=== PATIENT | female | born 1960 | race Caucasian/White ===

== ENCOUNTER 2020-06-26 08:39 | Day surgery (SDC) | payer OTHER ==
[2020-06-25 10:42] VITALS: BMI 20.1
[~2020-06-26 08:39] MED LIST: LACTATED RINGERS 1,000 ML IV SCH; LIDOCAINE 1% (10MG/ML) FOR IV START INTRADERMA PRN
[2020-06-26 09:16] VITALS: TEMP 97
[2020-06-26] MEDS ORDERED: LIDOCAINE 1% INJ 10MG/ML (20 ML MDV) ONE (09:27)
[2020-06-26] MEDS ORDERED: PROPOFOL 10 MG/ML 20 ML VIAL IV ONE (09:27)
--- NOTE | 2020-06-26 09:49 | P.PCN ---
Date of Procedure: 06/26/20 Procedure(s) Performed: BRIEF HISTORY: Patient is a 60-year-old pleasant white female scheduled for an elective colonoscopy as a part of evaluation of chronic diarrhea for the last 6 months duration. She denies any rectal bleeding. PROCEDURE PERFORMED: Colonoscopy with random biopsy. PREOPERATIVE DIAGNOSIS: Chronic diarrhea of 6 months duration. IV sedation per Anesthesia. PROCEDURE: After informed consent was obtained, the patient, was brought into the endoscopy unit. IV sedation was administered by Anesthesia under continuous monitoring. Digital rectal examination was normal. Initially the Olympus CF-160 flexible video colonoscope was then inserted in the rectum, gradually advanced into the cecum without any difficulty. Careful examination was performed as the scope was gradually being withdrawn. Ileocecal valve and the appendiceal orifice were visualized and appeared normal. Prep was excellent. Mucosa of the cecum, ascending colon, transverse colon, descending colon, sigmoid colon, and rectum appeared normal. scattered left-sided diverticulosis. Random biopsies were done from ascending and descending colon to rule out microscopic/collagenous colitis. Retroflexion was performed in the rectum and no lesions were seen. The patient tolerated the procedure well. IMPRESSION: Normal-appearing colon from rectum to cecum with no evidence of colitis or colorectal neoplasia. Scattered left sided diverticulosis . RECOMMENDATIONS: Findings of this examination were discussed with the patient as well as a family. She was advised to follow with the biopsy results. In the meantime she can use [id number] Imodium as needed for the chronic diarrhea.
[2020-06-26 09:57] VITALS: RESP 16
[2020-06-26 10:12] VITALS: BP 136/42; PULSE 77
== END 2020-06-26 10:53 | disposition home or self-care (01) ==
LOC: ORWHC2ENDO 08:39
PROVIDERS: ATTEND Internal Medicine Gastroenterology
DX: K57.30 Diverticulosis of large intestine without perforation or abscess without bleeding (principal); K52.9 Noninfective gastroenteritis and colitis, unspecified; M79.7 Fibromyalgia; K21.9 Gastro-esophageal reflux disease without esophagitis; Z88.2 Allergy status to sulfonamides; Z79.899 Other long term (current) drug therapy; Z79.891 Long term (current) use of opiate analgesic
CPT/HCPCS: 88305; 45380; J2001; J2704

== ENCOUNTER 2021-02-05 12:58 | Observation (INO) | payer OTHER ==
[2021-02-05] MEDS ORDERED: ASPIRIN 81 MG PO STA (13:30)
[2021-02-05] MEDS ORDERED: NITROGLYCERIN OINT 1 INCH/GM PACKET TOPICAL STA (13:30)
--- NOTE | 2021-02-05 13:34 | ED ---
General Adult HPI - General Chief complaint: Chest Pain Stated complaint: Chest Pain Time Seen by Provider: 02/05/21 13:04 Source: patient, RN notes reviewed Mode of arrival: wheelchair Limitations: no limitations - History of Present Illness Initial comments: Patient is a pleasant 60-year-old female presenting to the emergency Department with complaints of chest discomfort. Onset of symptoms was a week ago. Discomfort has been daily, generally mild however has had some severe episodes including prior to arrival. Discomfort mostly feels a pressure however occasionally sharp. Patient did have some tingling of her right arm. No associated dyspnea. No radiation. - Related Data Home Medications Medication Instructions Recorded Confirmed Amitriptyline HCl [Elavil] 75 mg PO HS 02/29/20 06/25/20 Calcium Carbonate/Vitamin D3 2 each PO DAILY 02/29/20 06/25/20 [Calcium 500-Vit D3 600 Tablet] Cholecalciferol [Vitamin D3 (25 25 mcg PO DAILY 02/29/20 06/25/20 Mcg = 1000 Iu)] Ferrous Sulfate [Feosol] 325 mg PO HS 02/29/20 06/25/20 Gabapentin [Neurontin] 300 mg PO TID 02/29/20 06/25/20 Morphine Sulfate [Ms Contin] 30 mg PO Q8HR PRN 02/29/20 06/25/20 Omeprazole [PriLOSEC] 20 mg PO AC-BRKFST PRN 02/29/20 06/25/20 Potassium Gluconate [Potassium 1 tab PO DAILY 02/29/20 06/25/20 Gluconate ER] Sennosides [Ex-Lax] 15 mg PO DIRECTED PRN 02/29/20 06/25/20 methocarbamoL [Robaxin] 500 mg PO Q8H 02/29/20 06/25/20 polyethylene glycoL 3350 [Miralax] 17 gm PO DAILY 02/29/20 06/25/20 Allergies Allergy/AdvReac Type Severity Reaction Status Date / Time Sulfa (Sulfonamide Allergy Rash/Hives Verified 02/05/21 12:59 Antibiotics) Review of Systems ROS Statement: Those systems with pertinent positive or pertinent negative responses have been documented in the HPI. ROS Other: All systems not noted in ROS Statement are negative. Constitutional: Denies: fever Eyes: Denies: eye pain ENT: Denies: ear pain Respiratory: Denies: cough Cardiovascular: Reports: as per HPI, chest pain Endocrine: Denies: fatigue Gastrointestinal: Denies: vomiting Genitourinary: Denies: dysuria Musculoskeletal: Denies: back pain Skin: Denies: rash Neurological: Denies: weakness Past Medical History Past Medical History: Fibromyalgia, GERD/Reflux Additional Past Medical History / Comment(s): positive covid Mar 2020, Back pain-extra disc. History of Any Multi-Drug Resistant Organisms: None Reported Past Surgical History: Bariatric Surgery, Section, Cholecystectomy, Hysterectomy, Tubal Ligation Additional Past Surgical History / Comment(s): Colonoscopy. Gastric bypass. C- S x3 Past Anesthesia/Blood Transfusion Reactions: Motion Sickness Past Psychological History: No Psychological Hx Reported Smoking Status: Never smoker Past Alcohol Use History: None Reported Past Drug Use History: None Reported - Past Family History Mother Family Medical History: Cancer Additional Family Medical History / Comment(s): ovarian cancer General Exam Limitations: no limitations General appearance: alert, in no apparent distress Head exam: Present: normocephalic Eye exam: Present: normal appearance Neck exam: Present: normal inspection Respiratory exam: Present: normal lung sounds bilaterally, chest wall tenderness (Minimal) Cardiovascular Exam: Present: regular rate, normal rhythm Expanded Peripheral pulses: 2+: Radial (R), Radial (L), Dorsalis Pedis (R), Dorsalis Pedis (L) GI/Abdominal exam: Present: soft. Absent: tenderness Extremities exam: Present: normal inspection. Absent: pedal edema, calf tenderness Neurological exam: Present: alert Psychiatric exam: Present: normal affect, normal mood Skin exam: Present: normal color Course Vital Signs 02/05/21 02/05/21 13:00 13:19 Temperature 98.3 F Pulse Rate 92 Pulse Rate [ 82 Guest Services ] Respiratory 18 16 Rate Blood Pressure 133/78 O2 Sat by Pulse 100 Oximetry EKG Findings - EKG Comments: EKG Findings:: Normal sinus rhythm with a rate of 90. DC 124. QRS 82. QT 360. QTC 440. Normal axis. Normal QRS. No acute ST change. Medical Decision Making - Medical Decision Making Patient reevaluated and resting comfortably in bed. Patient and family updated on results and plan. Patient specifically updated guarding lung nodule. Dr. Bobo has been paged for admission, covering Dr. Bernardo. - Lab Data Result diagrams: 02/05/21 13:45 02/05/21 13:45 Lab Results 02/05/21 02/05/21 02/05/21 Range/Units 13:45 13:45 13:45 WBC 7.1 (3.8-10.6) k/uL RBC 4.37 (3.80-5.40) m/uL Hgb 13.3 (11.4-16.0) gm/dL Hct 41.6 (34.0-46.0) % MCV 95.0 (80.0-100.0) fL MCH 30.4 (25.0-35.0) pg MCHC 32.0 (31.0-37.0) g/dL RDW 12.8 (11.5-15.5) % Plt Count 358 (150-450) k/uL MPV 7.5 Neutrophils % 71 % Lymphocytes % 21 % Monocytes % 5 % Eosinophils % 1 % Basophils % 0 % Neutrophils # 5.0 (1.3-7.7) k/uL Lymphocytes # 1.5 (1.0-4.8) k/uL Monocytes # 0.4 (0-1.0) k/uL Eosinophils # 0.1 (0-0.7) k/uL Basophils # 0.0 (0-0.2) k/uL PT 9.4 (9.0-12.0) sec INR 0.9 (<1.2) APTT 23.1 (22.0-30.0) sec D-Dimer 0.29 (<0.60) mg/L FEU Sodium 137 (137-145) mmol/L Potassium 4.0 (3.5-5.1) mmol/L Chloride 102 (98-107) mmol/L Carbon Dioxide 27 (22-30) mmol/L Anion Gap 8 mmol/L BUN 15 (7-17) mg/dL Creatinine 0.59 (0.52-1.04) mg/dL Est GFR (CKD-EPI)AfAm >90 (>60 ml/min/1.73 sqM) Est GFR (CKD-EPI)NonAf >90 (>60 ml/min/1.73 sqM) Glucose 112 H (74-99) mg/dL Calcium 10.0 (8.4-10.2) mg/dL Magnesium 1.8 (1.6-2.3) mg/dL Total Bilirubin 0.5 (0.2-1.3) mg/dL AST 36 (14-36) U/L ALT 29 (4-34) U/L Alkaline Phosphatase 98 (38-126) U/L Troponin I (0.000-0.034) ng/mL Total Protein 6.5 (6.3-8.2) g/dL Albumin 3.9 (3.5-5.0) g/dL 02/05/21 Range/Units 13:45 WBC (3.8-10.6) k/uL RBC (3.80-5.40) m/uL Hgb (11.4-16.0) gm/dL Hct (34.0-46.0) % MCV (80.0-100.0) fL MCH (25.0-35.0) pg MCHC (31.0-37.0) g/dL RDW (11.5-15.5) % Plt Count (150-450) k/uL MPV Neutrophils % % Lymphocytes % % Monocytes % % Eosinophils % % Basophils % % Neutrophils # (1.3-7.7) k/uL Lymphocytes # (1.0-4.8) k/uL Monocytes # (0-1.0) k/uL Eosinophils # (0-0.7) k/uL Basophils # (0-0.2) k/uL PT (9.0-12.0) sec INR (<1.2) APTT (22.0-30.0) sec D-Dimer (<0.60) mg/L FEU Sodium (137-145) mmol/L Potassium (3.5-5.1) mmol/L Chloride (98-107) mmol/L Carbon Dioxide (22-30) mmol/L Anion Gap mmol/L BUN (7-17) mg/dL Creatinine (0.52-1.04) mg/dL Est GFR (CKD-EPI)AfAm (>60 ml/min/1.73 sqM) Est GFR (CKD-EPI)NonAf (>60 ml/min/1.73 sqM) Glucose (74-99) mg/dL Calcium (8.4-10.2) mg/dL Magnesium (1.6-2.3) mg/dL Total Bilirubin (0.2-1.3) mg/dL AST (14-36) U/L ALT (4-34) U/L Alkaline Phosphatase (38-126) U/L Troponin I <0.012 (0.000-0.034) ng/mL Total Protein (6.3-8.2) g/dL Albumin (3.5-5.0) g/dL - Radiology Data Radiology results: image reviewed (Chest x-ray shows no acute process. 1.1 cm right midlung nodule.) Disposition Clinical Impression: Chest pain Disposition: ADMITTED IP TO THIS HOSP Is patient prescribed a controlled substance at d/c from ED?: No Referrals: Abdirizak Dawn DO [Primary Care Provider] - 1-2 days Decision Time: 15:04
[2021-02-05 13:53] LABS: Basophils % (A) 0 %; Eosinophils # (A) 0.1 k/uL (0-0.7); Eosinophils % (A) 1 %; HCT 41.6 % (34.0-46.0); HGB 13.3 gm/dL (11.4-16.0); Lymphocytes # (A) 1.5 k/uL (1.0-4.8); Lymphocytes % (A) 21 %; MCH 30.4 pg (25.0-35.0); Mean Platelet Volume 7.5; Monocytes # (A) 0.4 k/uL (0-1.0); Monocytes % (A) 5 %; Neutrophils % (A) 71 %; Platelet Count 358 k/uL (150-450); RBC 4.37 m/uL (3.80-5.40); RDW 12.8 % (11.5-15.5); WBC 7.1 k/uL (3.8-10.6)
--- NOTE | 2021-02-05 14:03 | XR ---
EXAMINATION TYPE: XR chest 2V DATE OF EXAM: 02/05/2021 COMPARISON: NONE TECHNIQUE: PA and lateral views submitted. HISTORY: Chest pain FINDINGS: The lungs are clear and there is no pneumothorax, pleural effusion, or focal pneumonia. There is a nodule seen in the right midlung measuring 1.1 cm. Hyperinflation noted. Degenerative change of the s pine. Surgical clips in the abdomen. Diffuse osteopenia with arthropathy of the shoulders. Heart size is normal. IMPRESSION: 1. No acute process. There is a 1.1 cm nodule in the right midlung recommend CT of the chest to exclu de a suspicious lesion.
[2021-02-05 14:13] LABS: INR 0.9 (<1.2); Partial Thromboplastin Time 23.1 sec (22.0-30.0); Prothrombin Time 9.4 sec (9.0-12.0)
[2021-02-05 14:15] LABS: ALT 29 U/L (4-34); AST 36 U/L (14-36); African American GFR (CKD) >90 (>60 ml/min/1.73 sqM); Albumin 3.9 g/dL (3.5-5.0); Alkaline Phosphatase 98 U/L (38-126); Anion Gap 8 mmol/L; Blood Urea Nitrogen 15 mg/dL (7-17); Carbon Dioxide 27 mmol/L (22-30); Chloride 102 mmol/L (98-107); Glucose 112 mg/dL (74-99); Magnesium 1.8 mg/dL (1.6-2.3); Non-African American GFR(CKD) >90 (>60 ml/min/1.73 sqM); Sodium 137 mmol/L (137-145); Total Bilirubin 0.5 mg/dL (0.2-1.3); Total Protein 6.5 g/dL (6.3-8.2)
[2021-02-05] MEDS ORDERED: NITROGLYCERIN SL TABS 0.4 MG TAB SUBLINGUAL PRN (15:41)
[2021-02-05] MEDS ORDERED: GABAPENTIN 300 MG CAP PO PRN (16:51)
[2021-02-05] MEDS ORDERED: LORazepam 0.5 MG TAB PO PRN (16:52)
[2021-02-05] MEDS ORDERED: LACTULOSE 20 GM/30 ML CUP PO PRN (16:52)
[2021-02-05] MEDS ORDERED: CALCIUM CARBONATE 500 MG CHEWABLE PO PRN (16:52)
[2021-02-05] MEDS ORDERED: MAGNESIUM HYDROXIDE 2,400 MG/10 ML CUP PO PRN (16:52)
[2021-02-05] MEDS ORDERED: ONDANSETRON 4 MG/2 ML VIAL IVP PRN (16:52)
[2021-02-05] MEDS ORDERED: ACETAMINOPHEN TAB 325 MG TAB PO PRN (16:52)
[2021-02-05] MEDS ORDERED: MAG HYDROX/AL HYDROX/SIMETH 30 ML CUP PO PRN (16:52)
[2021-02-05] MEDS ORDERED: NALOXONE 0.4 MG/ML 1 ML VIAL IV PRN (16:52)
[2021-02-05] MEDS ORDERED: MELATONIN 3 MG TABLET PO PRN (16:52)
[2021-02-05] MEDS: ENOXAPARIN 40 MG/0.4 ML SYRINGE SQ SCH (18:36)
[2021-02-05] MEDS: NITROGLYCERIN OINT 1 INCH/GM PACKET TOPICAL SCH (18:39)
[2021-02-05] MEDS: methocarbamoL 500 MG TAB PO SCH (18:45)
[2021-02-05] MEDS ORDERED: AMITRIPTYLINE HCL 25 MG TAB PO SCH (21:00)
[2021-02-05] MEDS: MORPHINE SULFATE ER 30 MG TABLET PO PRN (21:50)
[2021-02-06] MEDS: NITROGLYCERIN OINT 1 INCH/GM PACKET TOPICAL SCH ×3 (00:13→13:00)
[2021-02-06 02:31] VITALS: RESP 18
[2021-02-06] MEDS: methocarbamoL 500 MG TAB PO SCH ×2 (03:47→09:31)
[2021-02-06] MEDS ORDERED: PANTOPRAZOLE 40 MG TABLET PO SCH (07:30)
[2021-02-06] MEDS: FERROUS SULFATE 325 MG TAB PO SCH ×2 (07:42→10:40)
[2021-02-06] MEDS: ENOXAPARIN 40 MG/0.4 ML SYRINGE SQ SCH (07:45)
[2021-02-06 07:48] VITALS: BP 118/64; PULSE 65; TEMP 97.8
--- NOTE | 2021-02-06 08:04 | P.CRDCN ---
History of Present Illness Consult date: 02/06/21 Chief complaint: Chest pain History of present illness: This is a 60-year-old female patient with no significant cardiovascular risk factors but history of chronic pain who presented to the emergency department and subsequently was admitted to the observation admitted with a chest discomfort. She described the discomfort as a sharp in the middle of the chest without any radiation to the arms or neck or shoulders and without any associated symptoms of shortness of breath or dizziness or any feeling of heart racing or fluttering or presyncope or syncope. The chest discomfort according to her is a clearly not related to exertion. She states sometimes worse if she takes a deep breaths. D-dimer came in to be unremarkable. Cardiac enzymes were checked and came in to be unremarkable. The EKG showed sinus rhythm with nonspecific changes in the anteroseptal leads. Currently the patient is chest pain-free. Beside that she states for the last 2 weeks she noticed mild bilateral lower extremities edema. No history of coronary artery disease or congestive heart failure or cardiac arrhythmia and the patient never seen any machine spreader before. Past Medical History Past Medical History: Fibromyalgia, GERD/Reflux Additional Past Medical History / Comment(s): positive covid Mar 2020, Back pain-extra disc. History of Any Multi-Drug Resistant Organisms: None Reported Past Surgical History: Bariatric Surgery, Section, Cholecystectomy, Hysterectomy, Tubal Ligation Additional Past Surgical History / Comment(s): Colonoscopy. Gastric bypass. C- S x3 Past Anesthesia/Blood Transfusion Reactions: Motion Sickness Past Psychological History: No Psychological Hx Reported Smoking Status: Never smoker Past Alcohol Use History: None Reported Past Drug Use History: None Reported - Past Family History Mother Family Medical History: Cancer Additional Family Medical History / Comment(s): ovarian cancer Medications and Allergies Home Medications Medication Instructions Recorded Confirmed Type Amitriptyline HCl [Elavil] 75 mg PO HS 02/29/20 02/05/21 History Cholecalciferol [Vitamin D3 (25 25 mcg PO DAILY 02/29/20 02/05/21 History Mcg = 1000 Iu)] Ferrous Sulfate [Feosol] 325 mg PO DAILY 02/29/20 02/05/21 History Gabapentin [Neurontin] 300 mg PO Q8H PRN 02/29/20 02/05/21 History Morphine Sulfate [Ms Contin] 30 mg PO Q8HR PRN 02/29/20 02/05/21 History Omeprazole [PriLOSEC] 20 mg PO DAILY 02/29/20 02/05/21 History methocarbamoL [Robaxin] 500 mg PO Q8H 02/29/20 02/05/21 History polyethylene glycoL 3350 [Miralax] 17 gm PO DAILY 02/29/20 02/05/21 History Calcium Carbonate [Calcium] 1,200 mg PO DAILY 02/05/21 02/05/21 History Cyanocobalamin (Vitamin B-12) 1,000 mcg PO DAILY 02/05/21 02/05/21 History [Vitamin B-12] Multivitamins, Thera [Multivitamin 1 tab PO DAILY 02/05/21 02/05/21 History (formulary)] Potassium Gluconate 550 mg PO DAILY 02/05/21 02/05/21 History Allergies Allergy/AdvReac Type Severity Reaction Status Date / Time Sulfa (Sulfonamide Allergy Rash/Hives Verified 02/05/21 16:07 Antibiotics) Physical Exam Vitals: Vital Signs Temp Pulse Pulse Pulse Resp BP BP 02/06/21 07:00 97.8 F 65 18 118/64 02/06/21 02:00 98 F 72 18 123/63 02/05/21 20:00 98.2 F 68 16 121/56 02/05/21 16:11 78 18 122/78 02/05/21 13:19 82 16 02/05/21 13:00 98.3 F 92 18 133/78 Pulse Ox 02/06/21 07:00 98 02/06/21 02:00 98 02/05/21 20:00 96 02/05/21 16:11 99 02/05/21 13:19 02/05/21 13:00 100 Intake and Output 02/05/21 02/06/21 02/06/21 22:59 06:59 14:59 Other: Voiding Method Toilet Toilet # Voids 1 2 Weight 48.081 kg - Constitutional General appearance: no acute distress - Respiratory Respiratory: bilateral: CTA - Cardiovascular Rhythm: regular Heart sounds: normal: S1, S2 Results 02/05/21 13:45 02/05/21 13:45 Cardiac Enzymes 02/05/21 02/05/21 02/05/21 Range/Units 13:45 13:45 16:31 AST 36 (14-36) U/L Troponin I <0.012 <0.012 (0.000-0.034) ng/mL 02/05/21 Range/Units 19:52 AST (14-36) U/L Troponin I <0.012 (0.000-0.034) ng/mL Coagulation 02/05/21 Range/Units 13:45 PT 9.4 (9.0-12.0) sec APTT 23.1 (22.0-30.0) sec CBC 02/05/21 Range/Units 13:45 WBC 7.1 (3.8-10.6) k/uL RBC 4.37 (3.80-5.40) m/uL Hgb 13.3 (11.4-16.0) gm/dL Hct 41.6 (34.0-46.0) % Plt Count 358 (150-450) k/uL Comprehensive Metabolic Panel 02/05/21 Range/Units 13:45 Sodium 137 (137-145) mmol/L Potassium 4.0 (3.5-5.1) mmol/L Chloride 102 (98-107) mmol/L Carbon Dioxide 27 (22-30) mmol/L BUN 15 (7-17) mg/dL Creatinine 0.59 (0.52-1.04) mg/dL Glucose 112 H (74-99) mg/dL Calcium 10.0 (8.4-10.2) mg/dL AST 36 (14-36) U/L ALT 29 (4-34) U/L Alkaline Phosphatase 98 (38-126) U/L Total Protein 6.5 (6.3-8.2) g/dL Albumin 3.9 (3.5-5.0) g/dL Current Medications Generic Name Dose Route Start Last Admin Trade Name Freq PRN Reason Stop Dose Admin Acetaminophen 650 mg 02/05/21 16:52 02/05/21 20:52 Acetaminophen Tab 325 Mg Tab PO 650 mg Q6HR PRN Administration Mild Pain or Fever > 100.5 Al Hydroxide/Mg Hydroxide 15 ml 02/05/21 16:52 Mag Hydrox/Al Hydrox/Simeth 30 Ml Cup PO Q6HR PRN Indigestion Amitriptyline HCl 75 mg 02/05/21 21:00 02/05/21 23:10 Amitriptyline Hcl 25 Mg Tab PO 75 mg HS [facility] Administration Aspirin 325 mg 02/06/21 09:00 02/06/21 07:42 Aspirin 325 Mg Tab PO 325 mg DAILY [facility] Administration Calcium Carbonate 2 each 02/06/21 09:00 02/06/21 07:40 Calcium Carb-Vit D 500 Mg-5 Mcg Tab PO 2 each DAILY [facility] Administration Calcium Carbonate/Glycine 1,000 mg 02/05/21 16:52 Calcium Carbonate 500 Mg Chewable PO Q4HR PRN Dyspepsia Cholecalciferol 25 mcg 02/06/21 09:00 02/06/21 07:42 Cholecalciferol 25 Mcg (1000 Iu) Tablet PO 25 mcg DAILY [facility] Administration Cyanocobalamin 1,000 mcg 02/06/21 09:00 02/06/21 07:45 Cyanocobalamin 500 Mcg Tab PO 1,000 mcg DAILY [facility] Administration Enoxaparin Sodium 40 mg 02/05/21 18:00 02/06/21 07:45 Enoxaparin 40 Mg/0.4 Ml Syringe SQ Not Given DAILY [facility] Ferrous Sulfate 325 mg 02/06/21 09:00 Ferrous Sulfate 325 Mg Tab PO DAILY [facility] Gabapentin 300 mg 02/05/21 16:51 Gabapentin 300 Mg Cap PO Q8H PRN Pain Lactulose 20 gm 02/05/21 16:52 Lactulose 20 Gm/30 Ml Cup PO DAILY PRN Constipation Lorazepam 0.5 mg 02/05/21 16:52 Lorazepam 0.5 Mg Tab PO Q6HR PRN Anxiety Magnesium Hydroxide 2,400 mg 02/05/21 16:52 Magnesium Hydroxide 2,400 Mg/10 Ml Cup PO DAILY PRN Constipation Melatonin 3 mg 02/05/21 16:52 Melatonin 3 Mg Tablet PO HS PRN Insomnia Methocarbamol 500 mg 02/05/21 18:00 02/06/21 03:47 Methocarbamol 500 Mg Tab PO 500 mg Q8H [facility] Administration Morphine Sulfate 30 mg 02/05/21 16:51 02/05/21 21:50 Morphine Sulfate Er 30 Mg Tablet PO 30 mg Q8HR PRN Administration Pain Protocol Multivitamins 1 each 02/06/21 09:00 02/06/21 07:43 Multivitamins, Thera 1 Each Tab PO 1 each DAILY [facility] Administration Naloxone HCl 0.2 mg 02/05/21 16:52 Naloxone 0.4 Mg/Ml 1 Ml Vial IV Q2M PRN Opioid Reversal Nitroglycerin 0.4 mg 02/05/21 15:41 Nitroglycerin Sl Tabs 0.4 Mg Tab SUBLINGUAL Q5M PRN Chest Pain Nitroglycerin 1 inch 02/05/21 18:00 02/06/21 05:42 Nitroglycerin Oint 1 Inch/Gm Packet TOPICAL Not Given Q6HR [facility] Ondansetron HCl 4 mg 02/05/21 16:52 Ondansetron 4 Mg/2 Ml Vial IVP Q8HR PRN Nausea And Vomiting Pantoprazole Sodium 40 mg 02/06/21 07:30 02/06/21 07:42 Pantoprazole 40 Mg Tablet PO Not Given AC-BRKFST [facility] Polyethylene Glycol 17 gm 02/06/21 09:00 Polyethylene Glycol 3350 17 Gm Powd.Pack PO DAILY [facility] Intake and Output 02/05/21 02/06/21 02/06/21 22:59 06:59 14:59 Other: Voiding Method Toilet Toilet # Voids 1 2 Weight 48.081 kg 02/05/21 13:45 02/05/21 13:45 Assessment and Plan Assessment: Assessment #1 atypical and probably noncardiac chest discomfort #2 bilateral lower extremities edema Plan #1 pulmonary embolism was ruled out #2 acute coronary event was ruled out #3 we'll obtain an echo to assess ejection fraction #3 obtain a stress test to rule out severe CAD which is unlikely giving the absence of any risk factors #4 follow-up with the patient
[2021-02-06] MEDS ORDERED: polyethylene glycoL 3350 17 GM POWD.PACK PO SCH (09:00)
[2021-02-06] MEDS ORDERED: ASPIRIN 325 MG TAB PO SCH (09:00)
[2021-02-06] MEDS ORDERED: CALCIUM CARB-VIT D 500 MG-5 MCG TAB PO SCH (09:00)
[2021-02-06] MEDS ORDERED: CYANOCOBALAMIN 500 MCG TAB PO SCH (09:00)
[2021-02-06] MEDS ORDERED: CHOLECALCIFEROL 25 MCG (1000 IU) TABLET PO SCH (09:00)
[2021-02-06] MEDS ORDERED: MULTIVITAMINS, THERA 1 EACH TAB PO SCH (09:00)
--- NOTE | 2021-02-06 09:22 | P.HPIM ---
History of Present Illness H&P Date: 02/05/21 Chief Complaint: Chest pain History of presenting complaint: Patient was seen by me in the ER This is a very pleasant 60-year-old patient who follows with Dr. Abdirizak Bernardo. Chronic stable medical conditions include fibromyalgia, GERD, restless leg syndrome, osteoarthritis. In the lower back. Patient presents with pain across the chest for about a week. It feels rather sharp sometimes could come on at rest and became really sharp stabbing pain. Sometimes a bit worse with deep breathing. Not necessary associated with exertion. No dizziness nor lightheadedness no perspiration. Questionable shortness of breath. It is reproducible by pushing on it. No prior cardiac history. Otherwise patient rather active. No fever no chills. Review of systems: GEN.: None EYES: None HEENT: None NECK: None RESPIRATORY: None CARDIOVASCULAR: As above GASTROINTESTINAL: None GENITOURINARY: None MUSCULOSKELETAL: Joint pains especially lower back LYMPHATICS: None HEMATOLOGICAL: None PSYCHIATRY: None NEUROLOGICAL: None Past medical history to include: Fibromyalgia, GERD, restless leg syndrome, osteoarthritis Social history: Does not smoke or drink alcohol. . 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 EYES: Pupils equal. Conjunctiva normal. HEENT: External appearance of nose and ears normal, oral cavity grossly normal. NECK: JVD not raised; masses not palpable. HEART: First and second heart sounds are normal; no edema. LUNGS: Respiratory rate normal; clear to auscultation. ABDOMEN: Soft, nontender, liver spleen not palpable, no masses palpable. PSYCH: Alert and oriented x3; mood and affect normal MUSCULAR skeletal: Evidence of OA especially in the hands. Significant Reproducible chest pain in both the costochondral junction bilaterally. Tenderness of the costochondral junction NEUROLOGICAL: Cranial nerves grossly intact; no facial asymmetry, power and sensation grossly intact. LYMPHATICS: No lymph nodes palpable in the axilla and neck INVESTIGATIONS, reviewed in the clinical context: EKG tracing personally reviewed by me-normal sinus rhythm, rate 90/m Chest x-ray film personally reviewed by me-some hyperinflation. 1.1 cm nodule in the right midlung. Assessment and plan: -Anterior chest wall pain: Patient presents with pain for close to weak. Not necessarily related to activity. Reproducible. Tenderness in the costochondral junction. Some cardiac out of most of the presentation. Most likely acute costochondritis. EKG unremarkable. Negative troponin. Rule out a cardiac cause. Telemetry. Consult cardiology. -Chronic fibromyalgia Uses Neurontin -Chronic muscle spasms Robaxin 500 mg every 8 -Chronic constipation On MiraLAX 17 g daily -Chronic insomnia from chronic pain Elavil 75 mg daily at bedtime -GERD Prilosec 20 mg daily -Vitamin B12 deficiency B12 supplementation thousand micrograms daily -Restless leg syndrome Neurontin when necessary -Primary osteoarthritis multiple joints Use pain medications as needed Care was discussed with the patient and her [id number] mediate the bedside. Questions answered. Otherwise been consulted. Doubt presentation to be card iac. Telemetry. Past Medical History Past Medical History: Fibromyalgia, GERD/Reflux Additional Past Medical History / Comment(s): positive covid Mar 2020, Back pain-extra disc. History of Any Multi-Drug Resistant Organisms: None Reported Past Surgical History: Bariatric Surgery, Section, Cholecystectomy, Hysterectomy, Tubal Ligation Additional Past Surgical History / Comment(s): Colonoscopy. Gastric bypass. C- S x3 Past Anesthesia/Blood Transfusion Reactions: Motion Sickness Past Psychological History: No Psychological Hx Reported Smoking Status: Never smoker Past Alcohol Use History: None Reported Past Drug Use History: None Reported - Past Family History Mother Family Medical History: Cancer Additional Family Medical History / Comment(s): ovarian cancer Medications and Allergies Home Medications Medication Instructions Recorded Confirmed Type Amitriptyline HCl [Elavil] 75 mg PO HS 02/29/20 02/05/21 History Cholecalciferol [Vitamin D3 (25 25 mcg PO DAILY 02/29/20 02/05/21 History Mcg = 1000 Iu)] Ferrous Sulfate [Feosol] 325 mg PO DAILY 02/29/20 02/05/21 History Gabapentin [Neurontin] 300 mg PO Q8H PRN 02/29/20 02/05/21 History Morphine Sulfate [Ms Contin] 30 mg PO Q8HR PRN 02/29/20 02/05/21 History Omeprazole [PriLOSEC] 20 mg PO DAILY 02/29/20 02/05/21 History methocarbamoL [Robaxin] 500 mg PO Q8H 02/29/20 02/05/21 History polyethylene glycoL 3350 [Miralax] 17 gm PO DAILY 02/29/20 02/05/21 History Calcium Carbonate [Calcium] 1,200 mg PO DAILY 02/05/21 02/05/21 History Cyanocobalamin (Vitamin B-12) 1,000 mcg PO DAILY 02/05/21 02/05/21 History [Vitamin B-12] Multivitamins, Thera [Multivitamin 1 tab PO DAILY 02/05/21 02/05/21 History (formulary)] Potassium Gluconate 550 mg PO DAILY 02/05/21 02/05/21 History Allergies Allergy/AdvReac Type Severity Reaction Status Date / Time Sulfa (Sulfonamide Allergy Rash/Hives Verified 02/05/21 16:07 Antibiotics) Physical Exam Vitals: Vital Signs Temp Pulse Pulse Resp BP Pulse Ox 02/05/21 16:11 78 18 122/78 99 02/05/21 13:19 82 16 02/05/21 13:00 98.3 F 92 18 133/78 100 Intake and Output 02/05/21 02/05/21 02/05/21 06:59 14:59 22:59 Other: Weight 48.081 kg Results CBC & Chem 7: 02/05/21 13:45 02/05/21 13:45 Labs: Abnormal Lab Results - Last 24 Hours (Table) 02/05/21 Range/Units 13:45 Glucose 112 H (74-99) mg/dL
[2021-02-06] MEDS: MORPHINE SULFATE ER 30 MG TABLET PO PRN (09:34)
--- NOTE | 2021-02-06 11:54 | ECHOF ---
Referral Reason:CP MEASUREMENTS -------- HEIGHT: 152.4 cm WEIGHT: 48.1 kg BP: RVIDd: 2.3 cm (< 3.3) IVSd: 0.9 cm (0.6 - 1.1) LVIDd: 3.9 cm (3.9 - 5.3) LVPWd: 0.9 cm (0.6 - 1.1) IVSs: 0.9 cm LVIDs: 2.8 cm LVPWs: 1.3 cm LA Diam: 3.2 cm (2.7 - 3.8) LAESV Index (A-L): 24.10 ml/m Ao Diam: 2.7 cm (2.0 - 3.7) AV Cusp: 1.3 cm (1.5 - 2.6) LA Diam: 3.4 cm (2.7 - 3.8) MV EXCURSION: 16.659 mm (> 18.000) MV EF SLOPE: 99 mm/s (70 - 150) EPSS: 0.1 cm MV E Vipul: 0.76 m/s MV DecT: 163 ms MV A Vipul: 0.86 m/s MV E/A Ratio: 0.88 RAP: 5.00 mmHg RVSP: 21.66 mmHg FINDINGS -------- Sinus rhythm. This was a technically good study. LV size, wall thickness and systolic function are normal, with an EF greater than 55%. The left osiel tricular size is normal. The right ventricle is normal in size. Normal LA size by volume 22+/-6 ml/m2. The right atrial size is normal. The aortic valve is trileaflet, and appears structurally normal. No aortic stenosis or regurgitation. Mild mitral regurgitation is present. Mild tricuspid regurgitation present. Right ventricular systolic pressure is normal at < 35 mmHg. There is no pulmonic regurgitation present. The aortic root size is normal. There is a trivial pericardial effusion present. CONCLUSIONS -------- 1. LV size, wall thickness and systolic function are normal, with an EF greater than 55%. 2. The left ventricular size is normal. 3. The right ventricle is normal in size. 4. Normal LA size by volume 22+/-6 ml/m2. 5. The right atrial size is normal. 6. The aortic valve is trileaflet, and appears structurally normal. No aortic stenosis or regurgitati on. 7. Mild mitral regurgitation is present. 8. Mild tricuspid regurgitation present. 9. The aortic root size is normal. 10. There is a trivial pericardial effusion present. RV DETAILER: Adina Colindres RDCS
--- NOTE | 2021-02-06 13:52 | ECHOS ---
STRESS ECHOCARDIOGRAM DATE OF STUDY: 02/06/2021 INDICATIONS: Chest pain BASELINE HEART RATE: 84 BASELINE BLOOD PRESSURE: 130/66 MAXIMUM HEART RATE: 145 MAXIMUM BLOOD PRESSURE: 132/55 85% MPHR: 134 100% MPHR: 158 METS: 5.2 MAXIMUM STAGE REACHED: 2 TOTAL EXERCISE TIME: 4:36 CLINICAL INFORMATION: STRESS DATA: Heart rate is 84, pressure 130/66 mmHg. Baseline EKG showed sinus mechanism. The patient exercised on the treadmill according to Pino protocol for a total of 4 minutes and achieved 5.2 METS. Max heart rate was 145, which is about 91% of maximum predicted heart rate. Maximum blood pressure was 134/57 mmHg. Clinically the patient did not have any symptoms of chest pain or chest discomfort during the testing or on recovery. The EKG did not show any significant ST or T-wave abnormalities concerning for ischemia. ANALYSIS: Echocardiogram images from parasternal long axis view, parasternal short axis view, apical 4-chamber and apical 2-chamber views were obtained as the baseline images, at the peak of the heart rate as well as on recovery. The echocardiogram images showed good augmentation in the left ventricular systolic function. CONCLUSION: 1. Good exercise tolerance. 2. Normal EKG in response to exercise. 3. Normal echocardiogram in response to exercise. MMODL / IJN: [id number] /
--- NOTE | 2021-02-06 19:44 | P.DS ---
Providers Date of admission: 02/05/21 15:41 Expected date of discharge: 02/06/21 Attending physician: Gamaleil Bobo Consults: 02/05/21 15:41 Consult Physician Urgent Consulting Provider: Rene Flores Consult Reason/Comments: cp Do you want consulting provider notified?: Yes [facility] Course: Chief Complaint: Chest pain History of presenting complaint: Patient was seen by me in the ER This is a very pleasant 60-year-old patient who follows with Dr. Abdirizak Bernardo. Chronic stable medical conditions include fibromyalgia, GERD, restless leg syndrome, osteoarthritis. In the lower back. Patient presents with pain across the chest for about a week. It feels rather sharp sometimes could come on at rest and became really sharp stabbing pain. Sometimes a bit worse with deep breathing. Not necessary associated with exertion. No dizziness nor lightheadedness no perspiration. Questionable shortness of breath. It is reproducible by pushing on it. No prior cardiac history. Otherwise patient rather active. No fever no chills. February 06: Stress echocardiogram negative. Diagnosis costochondritis. Disc ussed with the patient. Cleared by cardiology Consultation: Dr. Terrazas from cardiology Past medical history to include: Fibromyalgia, GERD, restless leg syndrome, osteoarthritis Social history: Does not smoke or drink alcohol. . 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 Conjunctiva normal. NECK: JVD not raised; masses not palpable. HEART: First and second heart sounds are normal; mild edema. LUNGS: Respiratory rate normal; clear to auscultation. ABDOMEN: Soft, nontender, liver spleen not palpable, no masses palpable. PSYCH: Alert and oriented x3; mood and affect normal MUSCULAR skeletal: Evidence of OA especially in the hands. Significant R eproducible chest pain in both the costochondral junction bilaterally. Tenderness of the costochondral junction INVESTIGATIONS, reviewed in the clinical context: Stress echocardiogram: Negative for ischemia 2-D echocardiogram: EF greater than 55% EKG tracing personally reviewed by me-normal sinus rhythm, rate 90/m Chest x-ray film personally reviewed by me-some hyperinflation. 1.1 cm nodule i n the right midlung. WBC 7.1 hemoglobin 13.3 platelets 358 d-dimer 0.29 potassium 4 creatinine 0.59 Troponin I 3 negative Coronavirus [PCR]: Not detected Assessment and plan: -Anterior chest wall pain: Acute bilateral costochondritis. -Chronic fibromyalgia Uses Neurontin -Chronic muscle spasms Robaxin 500 mg every 8 -Chronic constipation On MiraLAX 17 g daily -Chronic insomnia from chronic pain Elavil 75 mg daily at bedtime -GERD Prilosec 20 mg daily -Vitamin B12 deficiency B12 supplementation thousand micrograms daily -Restless leg syndrome Neurontin when necessary -Primary osteoarthritis multiple joints Use pain medications as needed Disposition: Home Plan - Discharge Summary Discharge Rx Participant: No New Discharge Prescriptions: Continue Omeprazole [PriLOSEC] 20 mg PO DAILY Ferrous Sulfate [Iron (65 MG Elemental)] 325 mg PO DAILY Cholecalciferol [Vitamin D3 (25 Mcg = 1000 Iu)] 25 mcg PO DAILY polyethylene glycoL 3350 [Miralax] 17 gm PO DAILY methocarbamoL [Robaxin] 500 mg PO Q8H Amitriptyline HCl [Elavil] 75 mg PO HS Morphine Sulfate [Ms Contin] 30 mg PO Q8HR PRN PRN Reason: Pain Gabapentin [Neurontin] 300 mg PO Q8H PRN PRN Reason: Pain Calcium Carbonate [Calcium] 1,200 mg PO DAILY Potassium Gluconate 550 mg PO DAILY Multivitamins, Thera [Multivitamin (formulary)] 1 tab PO DAILY Cyanocobalamin (Vitamin B-12) [Vitamin B-12] 1,000 mcg PO DAILY Discharge Medication List Amitriptyline HCl [Elavil] 75 mg PO HS 02/29/20 [History] Cholecalciferol [Vitamin D3 (25 Mcg = 1000 Iu)] 25 mcg PO DAILY 02/29/20 [History] Ferrous Sulfate [Iron (65 MG Elemental)] 325 mg PO DAILY 02/29/20 [History] Gabapentin [Neurontin] 300 mg PO Q8H PRN 02/29/20 [History] Morphine Sulfate [Ms Contin] 30 mg PO Q8HR PRN 02/29/20 [History] Omeprazole [PriLOSEC] 20 mg PO DAILY 02/29/20 [History] methocarbamoL [Robaxin] 500 mg PO Q8H 02/29/20 [History] polyethylene glycoL 3350 [Miralax] 17 gm PO DAILY 02/29/20 [History] Calcium Carbonate [Calcium] 1,200 mg PO DAILY 02/05/21 [History] Cyanocobalamin (Vitamin B-12) [Vitamin B-12] 1,000 mcg PO DAILY 02/05/21 [History] Multivitamins, Thera [Multivitamin (formulary)] 1 tab PO DAILY 02/05/21 [History] Potassium Gluconate 550 mg PO DAILY 02/05/21 [History] Follow up Appointment(s)/Referral(s): cardiology, [Other] - 1 Week Abdirizak Dawn DO [Primary Care Provider] - 1-2 days Discharge Disposition: HOME SELF-CARE
[2021-02-07 01:35] LABS: Chol/HDL Ratio 2.35; LDL Cholesterol,Calculated 66.6 mg/dL (0.0-131.0); VLDL Calculation 10.4 mg/dL (5.00-40.00)
== END 2021-02-06 13:20 | disposition home or self-care (01) ==
LOC: EC 12:58 → 6NMEDSUR 15:41
PROVIDERS: ADMIT Hospitalist; ATTEND Hospitalist
DX: M94.0 Chondrocostal junction syndrome [Tietze] (principal); R60.0 Localized edema; R91.1 Solitary pulmonary nodule; K21.9 Gastro-esophageal reflux disease without esophagitis; M79.7 Fibromyalgia; G25.81 Restless legs syndrome; M62.838 Other muscle spasm; K59.09 Other constipation; M15.9 Polyosteoarthritis, unspecified; G47.01 Insomnia due to medical condition; G89.29 Other chronic pain; E53.8 Deficiency of other specified B group vitamins; M54.9 Dorsalgia, unspecified; Z86.16 Personal history of COVID-19; Z79.899 Other long term (current) drug therapy; Z88.2 Allergy status to sulfonamides; Z90.49 Acquired absence of other specified parts of digestive tract; Z90.710 Acquired absence of both cervix and uterus; Z98.51 Tubal ligation status; Z98.84 Bariatric surgery status; Z98.891 History of uterine scar from previous surgery; Z98.890 Other specified postprocedural states; Z80.41 Family history of malignant neoplasm of ovary
CPT/HCPCS: 96372; 99285; 36415; 93005; 93306; 93351; 85379; 80061; 80053; 83735; 84484; 85025; 85610; 85730; 87635; 71046; G0378 ×2; J1650; 96374